=== PATIENT | male | born 1960 | race Two or more races ===

== ENCOUNTER 2025-09-30 21:00 | Emergency (ER) | payer OTHER ==
[~2025-09-30] VITALS: Ht 162.6 cm; Wt 70.3 kg
[2025-09-30 21:37] VITALS: BP 109/75
[2025-09-30] MEDS: TETRACAINE HCL 0.5% OPHT DROP 2 ML BOTTLE OP ONE (22:42)
[2025-09-30 23:23] VITALS: BP 105/80; O2SAT 97
== END 2025-09-30 23:23 | disposition home or self-care (01) ==
LOC: ER 21:09
DX: H10.9 Unspecified conjunctivitis (principal); Z77.098 Contact with and (suspected) exposure to other hazardous, chiefly nonmedicinal, chemicals; I51.9 Heart disease, unspecified; F17.210 Nicotine dependence, cigarettes, uncomplicated; Z95.5 Presence of coronary angioplasty implant and graft
CPT/HCPCS: A4606; A4663; J7040